=== PATIENT | female | born 1950 | race Caucasian/White ===

== ENCOUNTER 2020-10-20 11:45 | Emergency (ER) | payer MEDICARE ==
[~2020-10-20] VITALS: Ht 157.5 cm; Wt 136.1 kg
[2020-10-20] MEDS ORDERED: NABU500 (12:04)
[2020-10-20] MEDS ORDERED: ACET325 PO (12:04)
[2020-10-20] MEDS ORDERED: ASPI325 PO (12:04)
[2020-10-20] MEDS ORDERED: LOSA50 PO (12:05)
[2020-10-20] MEDS ORDERED: PROZAC20 M2 PO (12:05)
[2020-10-20] MEDS ORDERED: TRAZ50 PO (12:05)
[2020-10-20] MEDS ORDERED: EUTHYROX137 MC1 PO (12:05)
[2020-10-20] MEDS ORDERED: NABUMETONE PO (12:06)
[2020-10-20] MEDS ORDERED: Simvastatin20 MG PO (12:06)
[2020-10-20 12:36] LABS: BASOPHILS ABSOLUTE AUTO 0.03 K/mm3 (0.00-0.23); BASOPHILS PERCENT AUTO 0 % (0-2); EOSINOPHILS ABSOLUTE AUTO 0.29 K/mm3 (0.00-0.68); EOSINOPHILS PERCENT AUTO 3 % (0-6); Hematocrit 35.9 % (33.0-51.0); Hemoglobin 11.5 g/dL (11.5-16.0); IMMATURE GRAN ABSOLUTE AUTO 0.05 K/mm3 (0.00-0.10); IMMATURE GRAN PERCENT AUTO 1 % (0-1); LYMPHOCYTES ABSOLUTE AUTO 1.02 K/mm3 (0.84-5.20); LYMPHOCYTES PERCENT AUTO 11 % (21-46); MONOCYTES ABSOLUTE AUTO 0.61 K/mm3 (0.16-1.47); MONOCYTES PERCENT AUTO 7 % (4-13); Mean Corpuscular HGB 28.5 pg (26.0-34.0); Mean Corpuscular Volume 89 fL (80-100); Mean Platelet Volume 10.1 fL (9.1-12.4); NEUTROPHILS ABSOLUTE AUTO 7.31 K/mm3 (1.96-9.15); NEUTROPHILS PERCENT AUTO 79 % (41-73); Platelet Count 198 K/mm3 (150-400); RDW Standard Deviation 42.1 fL (35.1-46.3); Red Blood Cell Count 4.04 M/mm3 (3.80-5.20); White Blood Cell Count 9.31 K/mm3 (4.00-11.30)
[2020-10-20 13:11] LABS: Alanine Aminotransfer (ALT/SGP 18 U/L (12-78); Albumin, Blood 3.3 g/dL (3.4-5.0); Albumin/Globulin Ratio 0.8 (0.8-1.8); Alk Phos 91 U/L (50-136); Anion Gap 5 mmol/L (6-16); Aspartate Aminotrans (AST/SGOT 18 U/L (12-37); Bilirubin, Total 0.6 mg/dL (0.1-1.0); Blood Urea Nitrogen 12 mg/dL (8-24); Bun/Creatinine Ratio 15.8 (12.0-20.0); CO2, Blood 29 mmol/L (21-32); Chloride, Blood 106 mmol/L (98-108); Creatinine, Blood 0.76 mg/dL (0.40-1.00); Globulin, Blood 4.2 g/dL (2.2-4.0); Glomerular Filtration Rate >60 (60-); Glucose, Blood 219 mg/dL (70-99); Potassium, Blood 3.6 mmol/L (3.5-5.5); Sodium, Blood 140 mmol/L (136-145); Total Protein, Blood 7.5 g/dL (6.4-8.2); Troponin I <0.015 ng/mL (0.000-0.040)
[2020-10-20] MEDS ORDERED: Prednisone20 MG PO (14:36)
[2020-10-20] MEDS ORDERED: CEFP200 PO (14:36)
[2020-10-20] MEDS ORDERED: Zithromax250 MG PO (14:36)
== END 2020-10-20 15:28 | disposition home or self-care (01) ==
LOC: ER 11:45
PROVIDERS: Physician Assistant
DX: J44.0 Chronic obstructive pulmonary disease with (acute) lower respiratory infection (principal); J18.9 Pneumonia, unspecified organism; Z79.899 Other long term (current) drug therapy; Z79.82 Long term (current) use of aspirin; Z88.8 Allergy status to other drugs, medicaments and biological substances; Z88.5 Allergy status to narcotic agent; Z87.891 Personal history of nicotine dependence
CPT/HCPCS: 36415; 71045; 80053; 83880; 84484; 85025; 93005; 93010; 99285-25; A9270-GY; J7512

== ENCOUNTER 2021-09-24 08:10 | Day surgery (SDC) | payer MEDICARE ==
[~2021-09-24] VITALS: Ht 157.5 cm; Wt 128.0 kg
[~2021-09-24 08:10] MED LIST: ACET325 PO; ASPI325 PO; CEFP200 PO; EUTHYROX137 MC1 PO; LOSA50 PO; NABU500; NABUMETONE PO; NOVOLOG100 UNIT/3; PROZAC20 M2 PO; Prednisone20 MG PO; Simvastatin20 MG PO; TRAZ50 PO; Zithromax250 MG PO
--- NOTE | 2021-09-24 10:52 | NUR ---
09/24/21 1052 Nola Huffman SEE ANESTHESIA FLOWSHEET
--- NOTE | 2021-09-24 12:07 | NUR ---
Patient up to Ambulate independently. Gait steady. Discharge instructions reviewed with patient. Patient verbalizes understanding. Copy given to patient to take home.Lungs clear T/O to Auscultation. Patient States Post-Procedure ride home has been arranged. Discharged via wheelchair to private car for ride home.
== END 2021-09-24 12:20 | disposition home or self-care (01) ==
LOC: ORSCMMR 08:10 → ORD 10:45 → ORSCMMR 10:45
PROVIDERS: Student in an Organized Health Care Education/Training Program
PROC: 0DBE8ZX Excision of Large Intestine, Via Natural or Artificial Opening Endoscopic, Diagnostic (ICD-10-PCS; principal; 2021-09-24 10:45)
PROC: 0DBH8ZX Excision of Cecum, Via Natural or Artificial Opening Endoscopic, Diagnostic (ICD-10-PCS; principal; 2021-09-24 10:45)
PROC: 0DBN8ZX Excision of Sigmoid Colon, Via Natural or Artificial Opening Endoscopic, Diagnostic (ICD-10-PCS; principal; 2021-09-24 10:45)
PROC: 0DBM8ZX Excision of Descending Colon, Via Natural or Artificial Opening Endoscopic, Diagnostic (ICD-10-PCS; principal; 2021-09-24 10:45)
DX: K92.1 Melena (principal); Z80.0 Family history of malignant neoplasm of digestive organs; Z86.010 Personal history of colon polyps; D12.0 Benign neoplasm of cecum; D12.4 Benign neoplasm of descending colon; D12.5 Benign neoplasm of sigmoid colon; K57.30 Diverticulosis of large intestine without perforation or abscess without bleeding; J44.9 Chronic obstructive pulmonary disease, unspecified; E11.9 Type 2 diabetes mellitus without complications; I10 Essential (primary) hypertension; E03.9 Hypothyroidism, unspecified; E66.01 Morbid (severe) obesity due to excess calories; Z68.43 Body mass index [BMI] 50.0-59.9, adult; Z79.82 Long term (current) use of aspirin; Z79.4 Long term (current) use of insulin
CPT/HCPCS: 82947; 88305; J2250; J2370; J2704; J7120

== ENCOUNTER → 2024-07-05 | Outpatient (CLI) | payer MEDICARE | END | disposition home or self-care (01) | LOC: LAB 17:49 → LAB SHORT 17:49 | DX: N17.9 Acute kidney failure, unspecified (principal); R35.0 Frequency of micturition; R32 Unspecified urinary incontinence; R39.9 Unspecified symptoms and signs involving the genitourinary system | CPT/HCPCS: 87077; 87086; 87186 ==